=== PATIENT | female | born 1975 | race Caucasian/White ===

== ENCOUNTER 2022-03-15 10:49 | Inpatient (IN) | payer SELFPAY ==
[~2022-03-15] VITALS: Ht 142.2 cm; Wt 65.8 kg
[~2022-03-15 10:49] MED LIST: ACYCLOVIR200 MG PO; ADDERALL 30 MG30 MG; ARMOUR THYROID60 MG PO; BIOTIN; CELEXA20 MG; COQ10; MELOXICAM7.5 MG PO; PANTOPRAZOLE SO40 MG PO; PROBIOTIC & AC1 EACH PO; TURMERIC500 MG; VITAMIN D34000 UNIT; XANAX0.25 MG
[2022-03-15 13:30] VITALS: BP 120/72
[2022-03-15 13:32] VITALS: BP 120/72
[2022-03-15] MEDS ORDERED: LITHOBID300 MG PO (14:09)
[2022-03-15] MEDS ORDERED: NEXIUM40 MG PO (14:09)
[2022-03-15] MEDS ORDERED: ZETIA10 MG PO (14:09)
[2022-03-15] MEDS ORDERED: LUNESTA3 MG PO (14:09)
[2022-03-15] MEDS ORDERED: ACETAMINOPHEN 325 MG TAB PO PRN (14:15)
[2022-03-15] MEDS: HYDROMORPHONE 1MG/1ML INJ IV PRN ×2 (15:30→20:23)
[2022-03-15] MEDS ORDERED: LEVOFLOXACIN 500MG/D5W 100ML 100 ML IV SCH (15:30)
[2022-03-15 16:00] VITALS: BP 123/79
[2022-03-15] MEDS: DIPHENHYDRAMINE HCL INJ 50 MG/ML VIAL IV PRN ×2 (16:14→20:22)
[2022-03-15] MEDS: ONDANSETRON HCL INJ 2MG/ML 2ML 2 MG/ML VIAL IV PRN ×2 (16:14→20:41)
[2022-03-15] MEDS ORDERED: DIPHENHYDRAMINE HCL INJ 50 MG/ML VIAL IV ONE (16:45)
[2022-03-15] MEDS: SODIUM CHLORIDE 0.9% 250ML 250 ML ONE ×2 (18:06→18:07)
[2022-03-15 20:00] VITALS: BP 115/79
[2022-03-15 20:10] VITALS: BP 115/79
[2022-03-15] MEDS: SODIUM CHLORIDE 0.9% 1000ML 1,000 ML IV SCH (20:32)
[2022-03-15] MEDS: METRONIDAZOLE 500MG/NS 100ML 100 ML IV SCH (22:56)
[2022-03-16] VITALS (9 sets, daily range): BP systolic 98–117; BP diastolic 61–89
[2022-03-16 04:59] LABS: BASOPHILS # (AUTO) 0.1 (0.0-0.1); BASOPHILS % 0.8 % (0.0-1.0); EOSINOPHILS # (AUTO) 0.2 (0.0-0.4); EOSINOPHILS % 3.4 % (0.0-6.0); HEMATOCRIT 36.5 % (34.2-44.1); HEMOGLOBIN 12.4 g/dL (12.0-16.0); LYMPHOCYTES # (AUTO) 1.6 (1.0-3.2); LYMPHOCYTES % 26.1 % (18.0-39.1); MEAN CORPUSCULAR HEMOGLOBIN 31.4 pg (28-32); MEAN CORPUSCULAR VOLUME 92.4 fL (81-99); MONOCYTES # (AUTO) 0.5 (0.2-0.8); MONOCYTES % 7.6 % (4.4-11.3); NEUTROPHILS # (AUTO) 3.8 (2.1-6.9); NEUTROPHILS % 61.9 % (38.7-80.0); PLATELET COUNT 224 x10e3/uL (140-360); RED BLOOD COUNT 3.95 x10e6/uL (3.6-5.1)
[2022-03-16 05:29] LABS: ALANINE AMINOTRANSFERASE 38 IU/L (0-55); ALBUMIN 3.3 g/dL (3.5-5.0); ALKALINE PHOSPHATASE 31 IU/L (40-150); ANION GAP 11.6 mmol/L (8-16); BILIRUBIN,DIRECT 0.1 mg/dL (0.0-0.5); BLOOD UREA NITROGEN < 5 mg/dL (7-26); CALCIUM 8.1 mg/dL (8.4-10.2); CARBON DIOXIDE 25 mmol/L (22-29); CHLORIDE 108 mmol/L (98-107); CREATININE, SERUM 0.78 mg/dL (0.57-1.11); GLUCOSE 100 mg/dL (74-118); LIPASE 22 U/L (8-78); MAGNESIUM 1.7 MG/DL (1.3-2.1); POTASSIUM 3.6 mmol/L (3.5-5.1); SODIUM 141 mmol/L (136-145)
[2022-03-16 05:31] LABS: BUN/CREATININE RATIO 6 (6-25)
[2022-03-16 05:48] LABS: THYROID STIMULATING HORMONE 16.309 uIU/mL (0.350-4.940)
[2022-03-16] MEDS: METRONIDAZOLE 500MG/NS 100ML 100 ML IV SCH ×2 (07:31→14:02)
[2022-03-16] MEDS: SODIUM CHLORIDE 0.9% 1000ML 1,000 ML IV SCH ×2 (08:11→14:02)
[2022-03-16] MEDS ORDERED: ALPRAZOLAM 0.25 MG TAB PO PRN (11:45)
[2022-03-16] MEDS ORDERED: LITHIUM CARBONATE ER 300 MG TAB PO SCH (12:00)
[2022-03-16] MEDS ORDERED: METRONIDAZOLE500 MG PO (14:30)
[2022-03-16] MEDS ORDERED: KEFLEX125 MG/5 M PO (14:33)
[2022-03-16] MEDS ORDERED: CEFTRIAXONE 1 GM VIAL IM ONE (15:00)
[2022-03-16] MEDS ORDERED: ACYCLOVIR 200 MG CAP PO SCH (21:00)
[2022-03-16] MEDS ORDERED: CITALOPRAM HYDROBROMIDE 20 MG TAB PO SCH (21:00)
[2022-03-16] MEDS ORDERED: EZETIMIBE 10 MG TAB PO SCH (21:00)
[2022-03-17] MEDS ORDERED: THYROID 60 MG TAB PO SCH (06:00)
[2022-03-17] MEDS ORDERED: PANTOPRAZOLE SOD 40 MG TABEC PO SCH (09:00)
== END 2022-03-16 16:33 | disposition home or self-care (01) | DRG 392 ==
LOC: MED/SURG 13:26
PROVIDERS: ADMIT Internal Medicine; ATTEND Internal Medicine
DX: K52.9 Noninfective gastroenteritis and colitis, unspecified (principal); F31.9 Bipolar disorder, unspecified; E03.9 Hypothyroidism, unspecified; Z20.822 Contact with and (suspected) exposure to COVID-19; Z88.1 Allergy status to other antibiotic agents; Z88.5 Allergy status to narcotic agent; Z79.899 Other long term (current) drug therapy
CPT/HCPCS: 36415; 80048; 80076; 83690; 83735; 84443; 85025; 96360; J0696; J1170; J1200; J1956; J2405; J7030; J7050